=== PATIENT | male | born 1955 | race Caucasian/White ===

== ENCOUNTER 2019-03-16 18:00 | Emergency (ER) | payer OTHER, MEDICAID ==
[~2019-03-16] VITALS: Ht 180.3 cm; Wt 70.8 kg
[2019-03-16 18:15] VITALS: BP_SYST 131
[2019-03-16 18:49] LABS: HEMATOCRIT 48.8 % (36-54); HEMOGLOBIN 15.4 g/dL (14.0-18.0); MEAN CORPUSCULAR HEMOGLOBIN 27 pg (27-31); MEAN CORPUSCULAR HGB CONC 32 % (32-36); MEAN CORPUSCULAR VOLUME 85 fL (79.0-98.0); RED BLOOD CELL COUNT(AUTO) 5.73 MIL/uL (4.2-6.2); RED CELL DISTRIBUTION WIDTH 22.6 % (9.0-15.0); WHITE BLOOD COUNT (AUTO) 14.6 K/uL (4.8-10.8)
[2019-03-16 18:56] LABS: CALCIUM 9.5 mg/dL (8.4-11.0); CREATININE 1.23 mg/dL (0.55-1.30)
[2019-03-16 19:01] LABS: ALBUMIN 3.4 g/dL (3.4-4.8); C-REACTIVE PROTEIN QUANT 3.5 mg/dL (0-0.5); TOTAL BILIRUBIN 0.6 mg/dL (0.0-1.0)
[2019-03-16 19:05] LABS: PLATELET COUNT (AUTO) 1527 K/uL (130-430)
[2019-03-16 19:07] LABS: POTASSIUM 2.8 mmol/L (3.5-5.1)
[2019-03-16] MEDS ORDERED: POTASSIUM CHLORIDE 20 MEQ/PKT PACKET PO ONE (19:15)
[2019-03-16 19:35] VITALS: BP_SYST 120
[2019-03-16 19:44] LABS: BAND % (MANUAL) 6 % (0-6); BASOPHILS % (MANUAL) 0 % (0-2); EOSINOPHILS % (MANUAL) 0 % (0-7); LYMPHOCYTES % (MANUAL) 9 % (20-46); MONOCYTES % (MANUAL) 12 % (0-11)
== END 2019-03-16 19:35 | disposition home or self-care (01) ==
LOC: SED 18:00
DX: L03.114 Cellulitis of left upper limb (principal); E87.6 Hypokalemia; D47.3 Essential (hemorrhagic) thrombocythemia; Z86.2 Personal history of diseases of the blood and blood-forming organs and certain disorders involving the immune mechanism; Z85.828 Personal history of other malignant neoplasm of skin
CPT/HCPCS: 36415; 80053; 85007; 85027; 86140; 99283